=== PATIENT | female | born 1955 | race Caucasian/White ===

== ENCOUNTER → 2017-06-21 | Outpatient (CLI) | payer BC ==
[2015-01-10 14:43] VITALS: BP 135/87
[~2017-06-21] MED LIST: CAFF200T13 PO; CALC500T30 PO; FLUT1DIS3 IH; MELO15TA6 PO; PYRI180T PO; TOLT4CAP PO
--- NOTE | 2017-06-21 10:10 | RAD ---
DATE: 06/21/2017 EXAM: DIGITAL SCREEN BILAT W/CAD HISTORY: Routine screening COMPARISON: 06/19/2016 This study was interpreted with the benefit of Computerized Aided Detection (CAD). The breast parenchyma is primarily fatty replaced. Breast parenchyma level density A. FINDINGS: No new or enlarging breast densities are seen. There are stable benign type calcifications. No suspicious microcalcifications have developed. IMPRESSION: Stable mammograms without evidence of malignancy. BI-RADS CATEGORY: 2 BENIGN FINDING(S) RECOMMENDED FOLLOW-UP: 12M 12 MONTH FOLLOW-UP PQRS compliance statement: Patient information was entered into a reminder system with a target due date for the next mammogram. Mammography is a sensitive method for finding small breast cancers, but it does not detect them all and is not a substitute for careful clinical examination. A negative mammogram does not negate a clinically suspicious finding and should not result in delay in biopsying a clinically suspicious abnormality. "Our facility is accredited by the [employer] Mammography [employer]."
== END | disposition home or self-care (01) ==
LOC: MAMMO 08:16
PROVIDERS: ATTEND Obstetrics & Gynecology
DX: Z12.31 Encounter for screening mammogram for malignant neoplasm of breast (principal); Z85.3 Personal history of malignant neoplasm of breast
CPT/HCPCS: G0202; 77067

== ENCOUNTER → 2018-06-26 | Outpatient (CLI) | payer BC ==
[2015-01-10 14:43] VITALS: BP 135/87
== END | disposition home or self-care (01) ==
LOC: MAMMO 07:50
PROVIDERS: ATTEND Obstetrics & Gynecology
DX: Z12.31 Encounter for screening mammogram for malignant neoplasm of breast (principal)
CPT/HCPCS: 77067

== ENCOUNTER → 2019-06-26 | Outpatient (CLI) | payer BC, MEDICARE ==
[2015-01-10 14:43] VITALS: BP 135/87
--- NOTE | 2019-06-26 15:44 | RAD ---
DATE: 06/26/2019 EXAM: DIGITAL SCREEN BILAT W/CAD HISTORY: Routine screening COMPARISON: 05/11/2015, 06/19/2016, 06/21/2017, 06/26/2018 mammographic exams This study was interpreted with the benefit of Computerized Aided Detection (CAD). Breast Density: SCATTERED The breast parenchyma shows scattered fibroglandular densities. Breast parenchyma level B. FINDINGS: No suspicious mass, calcification, or distortion. Small masses have remained stable. IMPRESSION: Stable BI-RADS CATEGORY: 1 NEGATIVE RECOMMENDED FOLLOW-UP: 12M 12 MONTH FOLLOW-UP PQRS compliance statement: Patient information was entered into a reminder system with a target due date for the next mammogram. Mammography is a sensitive method for finding small breast cancers, but it does not detect them all and is not a substitute for careful clinical examination. A negative mammogram does not negate a clinically suspicious finding and should not result in delay in biopsying a clinically suspicious abnormality. "Our facility is accredited by the [employer] Mammography [employer]."
== END | disposition home or self-care (01) ==
LOC: MAMMO 08:08
PROVIDERS: ATTEND Family Medicine
DX: Z12.31 Encounter for screening mammogram for malignant neoplasm of breast (principal); N63.20 Unspecified lump in the left breast, unspecified quadrant; N63.10 Unspecified lump in the right breast, unspecified quadrant
CPT/HCPCS: 77067

== ENCOUNTER → 2019-07-02 | Outpatient (CLI) | payer BC, MEDICARE ==
[2015-01-10 14:43] VITALS: BP 135/87
--- NOTE | 2019-07-02 16:55 | RAD ---
Indication: Postmenopausal screening for osteoporosis. COMPARISON: May 11, 2015. Bone Density: -BMD: (g/cm2) - AP Spine Total (L1-L4).......... 1.171. - Total right Hip................. 0.752. T-Score: - AP Spine Total (L1-L4)......... -0.1. - Total right Hip................. -1.7. Z-Score: - AP Spine Total (L1-L4).......... 1.6. - Total right Hip................. -0.4. World Health Organization criteria for BMD interpretation classify patients as Normal (T-score at or above -1.0), Osteopenic (T-score between -1.0 and -2.5), or Osteoporotic (T-score at or below -2.5). Impression: 1. AP Spine Total L1-L4--- normal study. The BMD may be artifactually increased due to endplate sclerosis related to scoliosis. Since the previous study, there has been an increase in the BMD of approximately 7%. 2. Total right Hip--- osteopenia. Since the previous study, there has been an increase in the BMD of approximately 5%. Electronically signed by: Raj Whitmore MD (07/02/2019 4:52 PM) [id number]
== END | disposition home or self-care (01) ==
LOC: DXRAD 15:08
PROVIDERS: ATTEND Nurse Practitioner Women's Health
DX: M85.88 Other specified disorders of bone density and structure, other site (principal); Z78.0 Asymptomatic menopausal state
CPT/HCPCS: 77080

== ENCOUNTER → 2020-08-12 | Outpatient (CLI) | payer BC ==
[2015-01-10 14:43] VITALS: BP 135/87
--- NOTE | 2020-08-15 10:21 | RAD ---
DATE: 08/12/2020 7:44 AM EXAM: DIGITAL SCREEN BILAT W/CAD HISTORY: Screening COMPARISON: 06/26/2019 Bilateral full field craniocaudal and mediolateral oblique images were obtained using digital technique. This study was interpreted with the benefit of Computerized Aided Detection (CAD). FINDINGS: Breast Density: FATTY The Breast Parenchyma is primarily fatty replaced. Breast parenchyma level density A. No suspicious masses, microcalcifications or architectural distortion is present to suggest malignancy in either breast. The visualized axillae are unremarkable. IMPRESSION: No mammographic evidence of malignancy. BI-RADS CATEGORY: 1 NEGATIVE RECOMMENDED FOLLOW-UP: 12M 12 MONTH FOLLOW-UP Annual screening mammography is recommended, unless clinically indicated sooner based on symptoms or change in physical exam. PQRS compliance statement: Patient information was entered into a reminder system with a target due date for the next mammogram. Mammography is a sensitive method for finding small breast cancers, but it does not detect them all and is not a substitute for careful clinical examination. A negative mammogram does not negate a clinically suspicious finding and should not result in delay in biopsying a clinically suspicious abnormality. "Our facility is accredited by the [employer] Mammography [employer]."
== END ==
LOC: MAMMO 07:34
PROVIDERS: ATTEND Family Medicine
DX: Z12.31 Encounter for screening mammogram for malignant neoplasm of breast (principal)
CPT/HCPCS: 77067

== ENCOUNTER → 2021-09-14 | Outpatient (CLI) | payer BC ==
[2015-01-10 14:43] VITALS: BP 135/87
--- NOTE | 2021-09-14 11:37 | RAD ---
BILATERAL DIGITAL SCREENING 2-D MAMMOGRAM INDICATION: Routine screening. COMPARISON: August 12, 2020, June 26, 2019, June 26, 2018 and June 19, 2016 Interpretation was made using CAD. FINDINGS: Breast Density: There are scattered areas of fibroglandular density. RIGHT BREAST: There are stable scattered asymmetry. No suspicious masses, calcifications or areas of architectural distortion are seen. LEFT BREAST: No suspicious masses, calcifications or areas of architectural distortion are seen. IMPRESSION: 1. No imaging evidence of malignancy. 2. Patient would benefit from 3-D mammography in the future. ASSESSMENT: BI-RADS 1. Negative. RECOMMENDATION: Routine annual screening mammogram. The facility will notify the patient of the results via mail. Patient information will be entered int o the mammography reminder system with a target recall date for the next mammogram. A reminder letter will be generated by the facility. Electronically signed by: Stacie Padron MD (09/14/2021 11:34 AM) [id number]
== END ==
LOC: MAMMO 07:42
PROVIDERS: ATTEND Obstetrics & Gynecology
DX: Z12.31 Encounter for screening mammogram for malignant neoplasm of breast (principal)
CPT/HCPCS: 77067

== ENCOUNTER → 2021-11-07 | Outpatient (CLI) | payer BC ==
[2015-01-10 14:43] VITALS: BP 135/87
--- NOTE | 2021-11-07 14:03 | RAD ---
INDICATION: Screening for osteopenia/osteoporosis. Postmenopausal evaluation COMPARISON: June 2019 TECHNIQUE: Bone densitometry was performed through the lumbar spine and proximal femur. IMPRESSION: Lumbar Spine: BMD: 1.18 T-Score: 0.3 Range: Normal. Increased by 5 percent from baseline in 2014. Scoliotic curvature the spine with degen erative changes. Proximal Femur: BMD: 0.66 T-Score: -2.4 Range: On the border between osteopenia and osteoporosis. Decreased by 7 percent from baseline in 201 5. World Health Organization Criteria for Bone Density: T-Score: > -1.0: Normal Range < -1.0 to -2.5: Osteopenic Range < -2.5: Osteoporotic Range Electronically signed by: Kevon Hernández MD (11/07/2021 2:01 PM) [id number]
== END ==
LOC: DXRAD 11:45
PROVIDERS: ATTEND Family Medicine
DX: M85.88 Other specified disorders of bone density and structure, other site (principal); M47.816 Spondylosis without myelopathy or radiculopathy, lumbar region; M43.8X6 Other specified deforming dorsopathies, lumbar region; N95.1 Menopausal and female climacteric states
CPT/HCPCS: 77080